=== PATIENT | male | born 1980 | race Caucasian/White ===

== ENCOUNTER 2021-10-13 18:34 | Emergency (ER) | payer SELFPAY ==
[~2021-10-13] VITALS: Ht 177.8 cm; Wt 92.0 kg
[2021-10-13 18:36] VITALS: BP 172/113
== END 2021-10-13 23:44 | disposition left against medical advice (07) ==
LOC: ER 18:34
DX: Z53.21 Procedure and treatment not carried out due to patient leaving prior to being seen by health care provider (principal)